=== PATIENT | male | born 1960 | race Caucasian/White ===

== ENCOUNTER 2022-01-26 07:17 | Emergency (ER) | payer BC, OTHER ==
[~2022-01-26] VITALS: Ht 175.3 cm; Wt 68.0 kg
[2022-01-26 08:01] VITALS: BP 172/95
[2022-01-26] MEDS ORDERED: ACET-1080 PO (08:02)
== END 2022-01-26 08:16 | disposition home or self-care (01) ==
LOC: ER 07:17
DX: S92.301A Fracture of unspecified metatarsal bone(s), right foot, initial encounter for closed fracture (principal); I10 Essential (primary) hypertension; F17.210 Nicotine dependence, cigarettes, uncomplicated; X58.XXXA Exposure to other specified factors, initial encounter; Y93.89 Activity, other specified; Y92.89 Other specified places as the place of occurrence of the external cause; Y99.8 Other external cause status
CPT/HCPCS: 29515; 73630

== ENCOUNTER 2024-03-14 12:36 | Inpatient (IN) | payer BC, MEDICARE ==
[~2024-03-14] VITALS: Ht 172.7 cm; Wt 61.8 kg
[~2024-03-14 12:36] MED LIST: ACET-1080 PO
[2024-03-14] MEDS: ASPirin 81 mg TAB PO ONE (12:55)
[2024-03-14 13:28] LABS: Alanine Aminotransferase 13 U/L (7-40); Albumin 4.6 g/dL (3.2-4.8); Alkaline Phosphatase 77 U/L (46-116); Anion Gap 7 (5-15); Aspartate Aminotransferase 27 U/L (13-40); BUN/Creatinine Ratio 28.8 (10.0-20.0); Blood Urea Nitrogen 17 mg/dL (9-23); Calcium 9.7 mg/dL (8.7-10.4); Carbon Dioxide 23 mmol/L (20-31); Chloride 96 mmol/L (98-107); Glucose 104 mg/dL (74-106); Potassium 4.1 mmol/L (3.5-5.1); Sodium 126 mmol/L (136-145)
[2024-03-14 13:29] LABS: Total Protein 7.5 g/dL (5.7-8.2)
[2024-03-14 14:51] LABS: Basophils # (auto) 0 10 ^3/uL (0-0.2); Eosinophils # (auto) 0 10 ^3/uL (0-0.8); Hemoglobin 12.2 g/dL (13.5-17.5); Lymphocytes # (auto) 0.3 10 ^3/uL (0.4-5.4); Monocytes # (auto) 0.2 10 ^3/uL (0-1.3); Red Cell Distribution Width 13.4 % (11.8-14.3)
[2024-03-14 14:53] LABS: Basophils % (auto) 1.1 % (0.0-2.0); Eosinophils % (auto) 1.3 % (0.0-7.0); Hematocrit 35.4 % (41.0-53.0); Mean Corpuscular Hemoglobin 34.5 pg (28.0-32.0); Mean Corpuscular Hgb Conc. 34.5 g/dL (32.0-36.0); Mean Corpuscular Volume 100.1 fL (80.0-100.0); Monocytes % (auto) 7.8 % (0.0-12.0); Neutrophils # (auto) 1.8 10 ^3/uL (1.6-8.6); Neutrophils % (auto) 77.8 % (37.0-80.0); Nucleated Red Blood Cells % 0.1 %; Platelet Count (auto) 163 10^3/uL (140-450); Red Blood Cells 3.54 10^6/uL (4.5-5.90); White Blood Cell 2.3 10^3/uL (4.4-10.8)
[2024-03-14] MEDS ORDERED: HYDROcodone-ACET 5/325MG TAB PO PRN (15:00)
[2024-03-14] MEDS: SODIUM CHLORIDE 0.9% 1,000 ML IV SCH (15:00)
[2024-03-14] MEDS ORDERED: NITROGLYCERIN 0.4 MG SL TAB SL PRN (15:00)
[2024-03-14] MEDS ORDERED: hydrALAZINE HCL 20 MG/ML VL IV PRN (15:00)
[2024-03-14] MEDS ORDERED: MORPHINE SULFATE INJ 2 MG/ml SYRG IV PRN ×2 (15:00)
[2024-03-14 15:06] LABS: INR 0.97 (0.9-1.15); Partial Thromboplastin Time 23.9 SEC (24.5-34.5); Prothrombin Time 10.3 sec (9.3-11.8)
[2024-03-14] MEDS: NICOTINE 7MG/24HR TOPICAL PATCH TD ONE (17:46)
[2024-03-14] MEDS: LISINOPRIL 20 MG TAB PO ONE (17:47)
[2024-03-14 18:31] VITALS: PULSE 94; RESP 18; O2SAT 99
[2024-03-14 20:00] VITALS: PULSE 97; RESP 16; O2SAT 98
[2024-03-14 22:23] VITALS: BP 129/77; PULSE 97; RESP 18; TEMP 98.4; O2SAT 100
[2024-03-14] MEDS ORDERED: PANT40TA2 PO (22:32)
[2024-03-14] MEDS ORDERED: ATOR-47 PO (22:32)
[2024-03-14] MEDS ORDERED: TAMS0.4C39 PO (22:32)
[2024-03-14] MEDS ORDERED: LISI30TA8 PO (22:32)
[2024-03-14] MEDS ORDERED: FOLITAB OR (22:32)
[2024-03-15] VITALS (9 sets, daily range): BP systolic 103–126; BP diastolic 60–75; PULSE 72–103; RESP 14–22; TEMP 97.2–98.6; O2SAT 95–100
[2024-03-15 08:16] LABS: Basophils # (auto) 0 10 ^3/uL (0-0.2); Eosinophils # (auto) 0 10 ^3/uL (0-0.8); Hematocrit 32.8 % (41.0-53.0); Hemoglobin 11.3 g/dL (13.5-17.5); Mean Corpuscular Hgb Conc. 34.5 g/dL (32.0-36.0); Monocytes # (auto) 0.2 10 ^3/uL (0-1.3); Neutrophils # (auto) 1.6 10 ^3/uL (1.6-8.6); White Blood Cell 2.1 10^3/uL (4.4-10.8)
[2024-03-15 08:20] LABS: Basophils % (auto) 1.1 % (0.0-2.0); Eosinophils % (auto) 1.3 % (0.0-7.0); Lymphocytes # (auto) 0.3 10 ^3/uL (0.4-5.4); Lymphocytes % (auto) 12.3 % (10.0-50.0); Mean Corpuscular Hemoglobin 34.4 pg (28.0-32.0); Mean Corpuscular Volume 99.8 fL (80.0-100.0); Monocytes % (auto) 8.2 % (0.0-12.0); Neutrophils % (auto) 77.1 % (37.0-80.0); Nucleated Red Blood Cells % 0.4 %; Platelet Count (auto) 150 10^3/uL (140-450); Red Blood Cells 3.29 10^6/uL (4.5-5.90); Red Cell Distribution Width 13.3 % (11.8-14.3)
[2024-03-15 08:35] LABS: Alanine Aminotransferase 10 U/L (7-40); Albumin 4.1 g/dL (3.2-4.8); Alkaline Phosphatase 72 U/L (46-116); Anion Gap 6 (5-15); Aspartate Aminotransferase 19 U/L (13-40); Blood Urea Nitrogen 16 mg/dL (9-23); Calcium 9.3 mg/dL (8.7-10.4); Carbon Dioxide 26 mmol/L (20-31); Chloride 98 mmol/L (98-107); Glucose 95 mg/dL (74-106); Sodium 130 mmol/L (136-145)
[2024-03-15 08:36] LABS: Total Protein 6.7 g/dL (5.7-8.2)
[2024-03-15] MEDS: ASPirin 81 mg TAB PO SCH (10:17)
[2024-03-15] MEDS: NICOTINE 7MG/24HR TOPICAL PATCH TD SCH (10:18)
[2024-03-15] MEDS: LISINOPRIL 20 MG TAB PO SCH (10:19)
[2024-03-15] MEDS: ENOXAPARIN SOD 40 MG/0.4 ML SYRINGE SC SCH (10:19)
[2024-03-15] MEDS: D5W/LACTATED RINGERS 1,000 ML IV SCH (10:45)
[2024-03-15] MEDS ORDERED: VITAMINS A & D (TOPICAL) OINT 5GM TOP PRN (11:00)
[2024-03-15] MEDS: SUCRALFATE 1 GM/10 ML ORAL SUSP GT SCH (11:30)
[2024-03-15] MEDS: Ensure Enlive Chocolate 8oz Bottle PO SCH (18:00)
[2024-03-15] MEDS: PANTOPRAZOLE 40 MG/10 ML VIAL INJ IV SCH (21:18)
[2024-03-16] VITALS (8 sets, daily range): BP systolic 108–121; BP diastolic 62–75; PULSE 66–97; RESP 14–18; TEMP 97.6–98.8; O2SAT 96–98
[2024-03-16] MEDS ORDERED: CLINIMIX PER PHARMACY 0 ML IV SCH (10:30)
[2024-03-16] MEDS ORDERED: DEXTROSE (50%) 50ML SYRG IV SCH (11:15)
[2024-03-16] MEDS: ACCU-CHEK COMFORT CURVE STRIP VI SCH (11:40)
[2024-03-16] MEDS: InsuLIN REG 1unit/0.01ml Soln (100units/ml) SC SCH (11:41)
[2024-03-16 14:54] LABS: Potassium 3.7 mmol/L (3.5-5.1)
[2024-03-16 15:00] LABS: BUN/Creatinine Ratio 18.9 (10.0-20.0); Magnesium 1.6 mg/dL (1.6-2.6)
[2024-03-16 15:02] LABS: Albumin 3.7 g/dL (3.2-4.8)
[2024-03-16] MEDS: POTASSIUM PHOSPHATE 22 MEQ in SODIUM CHL 0.9% 100 ML IV ONE (17:00)
[2024-03-16] MEDS: MAGNESIUM SULFATE 1GM/100ML 100 ML IV ONE (17:24)
[2024-03-16] MEDS ORDERED: AMINO ACID INFUSION IN D10W 1,000 ML IV SCH (20:00)
[2024-03-16] MEDS: AMINO ACID INFUSION IN D10W 2,000 ML IV SCH (21:03)
[2024-03-17] VITALS (10 sets, daily range): BP systolic 109–131; BP diastolic 66–73; PULSE 82–91; RESP 14–20; TEMP 97.8–99.4; O2SAT 95–100
[2024-03-17 06:20] LABS: Albumin 3.7 g/dL (3.2-4.8); Alkaline Phosphatase 59 U/L (46-116); Anion Gap 7 (5-15); Aspartate Aminotransferase 16 U/L (13-40); BUN/Creatinine Ratio 18.4 (10.0-20.0); Blood Urea Nitrogen 9 mg/dL (9-23); Calcium 8.8 mg/dL (8.7-10.4); Carbon Dioxide 22 mmol/L (20-31); Chloride 100 mmol/L (98-107); Glucose 111 mg/dL (74-106); Magnesium 1.7 mg/dL (1.6-2.6); Potassium 3.1 mmol/L (3.5-5.1); Sodium 129 mmol/L (136-145)
[2024-03-17 06:21] LABS: Bilirubin, Total 0.6 mg/dL (0.2-1.0); Phosphorus 2.5 mg/dL (2.4-5.1)
[2024-03-17 06:48] LABS: Alanine Aminotransferase < 9 U/L (7-40)
[2024-03-17] MEDS ORDERED: SILVER SULFADIAZINE 1 % TOPICAL CREAM 50GM TOP SCH (10:00)
[2024-03-17] MEDS: SILVER SULFADIAZINE 1 % TOPICAL CREAM 50GM TOP SCH (11:00)
[2024-03-17] MEDS: POTASSIUM CHLORIDE 40 MEQ, LIDOCAINE 1% (LOCAL ANESTH.) 4 ML in SODIUM CHL 0.9% 250 ML IV ONE (11:45)
[2024-03-17] MEDS ORDERED: LIDOCAINE 2%HCL (LOCAL ANESTH.) INJ 10ml MDV ONE (12:12)
[2024-03-17] MEDS ORDERED: PROPOFOL 10 MG/ML 20 ML IV ONE (12:13)
[2024-03-17] MEDS ORDERED: ceFAZolin 1GM/50ML 50 ML IV ONE (13:00)
[2024-03-17] MEDS: MAGNESIUM SULFATE 1GM/100ML 100 ML IV ONE (14:30)
[2024-03-17] MEDS: SODIUM PHOSPHATES 20 MEQ in SODIUM CHL 0.9% 100 ML IV ONE (18:13)
[2024-03-17] MEDS: AMINO ACID INFUSION IN D5W 2,000 ML IV SCH (20:00)
[2024-03-18] VITALS (7 sets, daily range): BP systolic 113–130; BP diastolic 65–76; PULSE 83–105; RESP 18–20; TEMP 97.9–99.2; O2SAT 94–99
[2024-03-18 08:34] LABS: Potassium 3.5 mmol/L (3.5-5.1)
[2024-03-18 08:35] LABS: Calcium 8.9 mg/dL (8.7-10.4)
[2024-03-18 08:40] LABS: BUN/Creatinine Ratio 12.5 (10.0-20.0)
[2024-03-18 08:41] LABS: Magnesium 1.9 mg/dL (1.6-2.6)
[2024-03-18 08:42] LABS: Albumin 3.7 g/dL (3.2-4.8); Phosphorus 2.5 mg/dL (2.4-5.1)
[2024-03-18] MEDS: SODIUM PHOSP 20MEQ(15MMOL) IN NS 100 ML IV ONE (13:00)
[2024-03-19 05:00] VITALS: BP 101/61; PULSE 79; RESP 17; TEMP 98.3; O2SAT 95
[2024-03-19 06:57] LABS: Hematocrit 29.6 % (41.0-53.0); Hemoglobin 10.4 g/dL (13.5-17.5); Mean Corpuscular Hgb Conc. 35.3 g/dL (32.0-36.0); Mean Corpuscular Volume 99.2 fL (80.0-100.0); Platelet Count (auto) 139 10^3/uL (140-450); Red Blood Cells 2.98 10^6/uL (4.5-5.90); Red Cell Distribution Width 14.1 % (11.8-14.3)
[2024-03-19 07:05] LABS: Alanine Aminotransferase 11 U/L (7-40); Albumin 3.6 g/dL (3.2-4.8); Alkaline Phosphatase 58 U/L (46-116); Anion Gap 6 (5-15); Aspartate Aminotransferase 16 U/L (13-40); BUN/Creatinine Ratio 21.2 (10.0-20.0); Bilirubin, Total 0.8 mg/dL (0.2-1.0); Blood Urea Nitrogen 11 mg/dL (9-23); Calcium 8.8 mg/dL (8.7-10.4); Carbon Dioxide 24 mmol/L (20-31); Chloride 100 mmol/L (98-107); Glucose 98 mg/dL (74-106); Magnesium 1.6 mg/dL (1.6-2.6); Phosphorus 2.9 mg/dL (2.4-5.1); Potassium 3.1 mmol/L (3.5-5.1); Sodium 130 mmol/L (136-145); Total Protein 6.1 g/dL (5.7-8.2)
[2024-03-19 07:09] LABS: Basophils % (manual) 0 (0.0-2.0); Blast Cells 0; Metamyelocytes % 0; Myelocytes % 0; Promyelocytes % 0; Reactive Lymphocytes 0; White Blood Cell 1.6 10^3/uL (4.4-10.8)
[2024-03-19 07:16] LABS: INR 1.08 (0.9-1.15); Partial Thromboplastin Time 28.9 SEC (24.5-34.5); Prothrombin Time 11.4 sec (9.3-11.8)
[2024-03-19] MEDS ORDERED: SIMETHICONE 40 MG/0.6 ML ORAL DROP ONE (07:36)
[2024-03-19 08:00] VITALS: BP 98/65; PULSE 75; RESP 18; TEMP 98.1; O2SAT 97
[2024-03-19 08:21] LABS: Band Neutrophils % (manual) 4; Eosinophils % (manual) 2 (0-7); Lymphocytes % (manual) 25 (10.0-50.0); Monocytes % (manual) 19 (0-12)
[2024-03-19 08:22] LABS: Platelet Estimate Decreased; RBC Morphology Normal
[2024-03-19 12:00] VITALS: BP 108/71; PULSE 79; RESP 18; TEMP 97.6; O2SAT 95
[2024-03-19] MEDS ORDERED: fentaNYL CITRATE 100 MCG/2 ML VL ONE (14:38)
[2024-03-19] MEDS ORDERED: MIDAZOLAM HCL 2MG/2ML 2ml VIAL (1mg/ml) ONE (14:38)
[2024-03-19] MEDS ORDERED: ONDANSETRON HCL 4 MG/2 ML VIAL ONE (14:57)
[2024-03-19] MEDS ORDERED: PROPOFOL 10 MG/ML 20 ML IV ONE (14:57)
[2024-03-19] MEDS: POTASSIUM CHLORIDE 40 MEQ, LIDOCAINE 1% (LOCAL ANESTH.) 4 ML in SODIUM CHL 0.9% 250 ML IV ONE (16:14)
[2024-03-19 17:00] VITALS: BP 136/74; PULSE 75; RESP 20; TEMP 98.1; O2SAT 97
[2024-03-19 21:00] VITALS: BP 138/78; PULSE 96; RESP 18; TEMP 98.9; O2SAT 94
[2024-03-19] MEDS: ACETAMINOPHEN 325 MG TAB PO PRN (21:20)
[2024-03-20 01:00] VITALS: BP 130/76; PULSE 90; RESP 18; TEMP 98.8; O2SAT 98
[2024-03-20 05:00] VITALS: BP 118/75; PULSE 78; RESP 16; TEMP 98.4; O2SAT 97
[2024-03-20] MEDS: ENSURE CLEAR Apple 8oz Carton PO SCH (06:00)
[2024-03-20 06:03] LABS: Alanine Aminotransferase 10 U/L (7-40); Albumin 3.5 g/dL (3.2-4.8); Alkaline Phosphatase 55 U/L (46-116); Anion Gap 4 (5-15); Aspartate Aminotransferase 14 U/L (13-40); Bilirubin, Total 0.7 mg/dL (0.2-1.0); Blood Urea Nitrogen 11 mg/dL (9-23); Calcium 8.7 mg/dL (8.7-10.4); Carbon Dioxide 26 mmol/L (20-31); Chloride 98 mmol/L (98-107); Glucose 104 mg/dL (74-106); Magnesium 1.5 mg/dL (1.6-2.6); Phosphorus 2.6 mg/dL (2.4-5.1); Potassium 3.3 mmol/L (3.5-5.1); Sodium 128 mmol/L (136-145)
[2024-03-20 06:04] LABS: Total Protein 5.9 g/dL (5.7-8.2)
[2024-03-20 08:00] VITALS: BP 115/66; PULSE 78; RESP 18; TEMP 97.9; O2SAT 97
[2024-03-20] MEDS ORDERED: SILV1CRE82 TOP (08:48)
[2024-03-20] MEDS ORDERED: GAUZ4PAD82 XX (08:48)
[2024-03-20] MEDS ORDERED: NUTR-709 OR (08:48)
[2024-03-20] MEDS ORDERED: PANT40TA2 PO (08:50)
[2024-03-20] MEDS ORDERED: SUCR1TAB31 OR (08:50)
[2024-03-20] MEDS: POTASSIUM EFFERVESENT TAB 25 MEQ GT ONE (10:14)
[2024-03-20 12:00] VITALS: BP 110/63; PULSE 75; RESP 20; TEMP 98.4; O2SAT 97
[2024-03-20 12:50] VITALS: BP 115/66; PULSE 78; RESP 18; TEMP 97.9; O2SAT 97
== END 2024-03-20 14:00 | disposition home health service (06) | DRG 392 ==
LOC: ER 12:36 → TELE 14:54 → TELE-CENTR 14:54 → CENTRAL 03-17 19:01
PROVIDERS: ADMIT Registered Nurse; ATTEND Nurse Practitioner Acute Care
PROC: 0DB68ZX Excision of Stomach, Via Natural or Artificial Opening Endoscopic, Diagnostic (ICD-10-PCS; 2024-03-17)
PROC: 0DB38ZX Excision of Lower Esophagus, Via Natural or Artificial Opening Endoscopic, Diagnostic (ICD-10-PCS; 2024-03-17)
PROC: 0DB98ZX Excision of Duodenum, Via Natural or Artificial Opening Endoscopic, Diagnostic (ICD-10-PCS; principal; 2024-03-17 12:33)
PROC: 0DH63UZ Insertion of Feeding Device into Stomach, Percutaneous Approach (ICD-10-PCS; 2024-03-19)
DX: K20.80 Other esophagitis without bleeding (principal); C34.91 Malignant neoplasm of unspecified part of right bronchus or lung; I10 Essential (primary) hypertension; F17.210 Nicotine dependence, cigarettes, uncomplicated; T50.995A Adverse effect of other drugs, medicaments and biological substances, initial encounter; K29.70 Gastritis, unspecified, without bleeding; C44.91 Basal cell carcinoma of skin, unspecified; I25.9 Chronic ischemic heart disease, unspecified; R13.10 Dysphagia, unspecified; K44.9 Diaphragmatic hernia without obstruction or gangrene; Z79.82 Long term (current) use of aspirin; Y92.89 Other specified places as the place of occurrence of the external cause; Z92.3 Personal history of irradiation
CPT/HCPCS: 36415; 71045; 71250; 80053; 80069; 82962; 83735; 84100; 84484; 85007; 85025; 85027; 85610; 85730; 86850; 86900; 86901; 93005; 93306; 99291; G0378; J2003; J2250; J2405; J2470; J2704